=== PATIENT | male | born 2000 | race Caucasian/White ===

== ENCOUNTER 2022-06-25 21:34 | Emergency (ER) | payer BC ==
[~2022-06-25] VITALS: Ht 160 cm; Wt 77.1 kg
[2022-06-25 21:39] VITALS: BP 121/62
--- NOTE | 2022-06-25 21:47 | NUR ---
pt w/c assisted to bed #6
[2022-06-25] MEDS ORDERED: LIDOCAINE MPF 1% 10 MG/ML VIAL INJ ONE (22:45)
[2022-06-25] MEDS ORDERED: IBUP-2213 PO (23:34)
[2022-06-25 23:50] VITALS: BP 133/77
--- NOTE | 2022-06-25 23:52 | NUR ---
Patient discharged with v/s stable. Written and verbal after care instructions given and explained. Patient verbalized understanding. Ambulatory with steady gait. All questions addressed prior to discharge. Advised to follow up with PMD.
== END 2022-06-25 23:52 | disposition home or self-care (01) ==
LOC: MED 21:34
DX: S92.412A Displaced fracture of proximal phalanx of left great toe, initial encounter for closed fracture (principal); W18.30XA Fall on same level, unspecified, initial encounter; Y93.89 Activity, other specified; Y92.89 Other specified places as the place of occurrence of the external cause; Y99.8 Other external cause status
CPT/HCPCS: 28660; 70450; 73630; 73660; 99284; J2001